=== PATIENT | female | born 1990 | race Caucasian/White ===

== ENCOUNTER 2022-05-21 14:36 | Emergency (ER) | payer OTHER, SELFPAY ==
[2022-05-21 15:19] VITALS: BP 150/82; PULSE 97; RESP 18; TEMP 36.3; O2SAT 98; BMI 22.3
--- NOTE | 2022-05-21 17:03 | CRLHL7_ITS ---
For Patients: As a result of the Century Cures Act, medical imaging exams and procedure reports are released immediately into your electronic medical record. You may view this report before your referring provider. If you have questions, please contact your health care provider. INDICATION: Abdominal pain. TECHNIQUE: CT abdomen and pelvis acquired with intravenous contrast, 64 mL of Isovue 370. Coronal and sagittal reformats. COMPARISON: None available. FINDINGS: The imaged lower chest is unremarkable. Normal liver contour. No suspicious hepatic lesion. The portal and hepatic veins are patent. No biliary dilatation. The gallbladder, pancreas, spleen, and adrenals are unremarkable. Symmetric renal enhancement. No hydronephrosis bilaterally. Unremarkable bladder. Anteverted uterus. The bowel appears normal in caliber and enhancement diffusely. Noninflamed appendix. No free air, free fluid, focal collection, or lymphadenopathy. Normal caliber abdominal aorta. No suspicious osseous lesion. IMPRESSION: No acute findings or CT correlate for abdominal pain identified. Dictated by Vance Mueller MD @ 05/21/2022 6:19:05 PM Please note that all CT scans at this facility use dose modulation, iterative reconstruction, and/or weight-based dosing when appropriate to reduce radiation dose to as low as reasonably achievable. Dictated by: Vance Mueller MD @ 05/21/2022 18:19:11 (Electronically Signed)
--- NOTE | 2022-05-21 17:04 | ED_ITS ---
HPI - Abdominal Pain General Chief Complaint: Abdominal Pain Stated Complaint: Diarrhea 2 days, right side abdominal pain Time Seen by Provider: 05/21/22 16:15 History of Present Illness HPI narrative: This 31-year-old female comes in with right-sided abdominal pain that began a couple days ago. She states that it is a constant pain and seems to be worsening. She has had several bouts of diarrhea daily since then. She does not report any fevers or dysuria. She states that she does not care to eat much. Pain is worse with movement and lessened when remaining still. Related Data Home Medications Medication Instructions Recorded Confirmed albuterol sulfate 90 mcg/actuation inhalation 05/21/22 aerosol inhaler etonogestrel 68 mg subdermal subdermal 05/21/22 implant mometasone 100 mcg/actuation HFA inhalation 05/21/22 aerosol inhaler (Asmanex HFA) Previous Rx's Medication Instructions Recorded hydrocodone 5 mg-acetaminophen 325 1 tab PO Q4-6H PRN pain #14 tabs 05/21/22 mg tablet Allergies Allergy/AdvReac Type Severity Reaction Status Date / Time doxycycline Allergy Verified 05/21/22 15:18 ibuprofen Allergy Verified 05/21/22 15:18 Review of Systems Status of ROS Reports: 10 or more systems reviewed and unremarkable except as noted in History and below Narrative Constitutional: No fevers, no weight gain or loss. Eyes: No discharge. No vision changes. HENT: No congestion, no sore throat, no ear pain. Cardiovascular: No chest pain, no palpitations. Respiratory: No shortness of breath, no wheezes, no cough. Gastrointestinal: Right-sided abdominal pain with diarrhea. Genitourinary: No dysuria, no hematuria. Musculoskeletal: Normal range of motion. Skin: No rashes, no pruritis. Neurological: No dizziness, weakness, sensory change, speech change. Endo/Heme/Allergies: No bruising or bleeding. No polydipsia. Pysch: no suicidality, no anxiety, no insomnia. All other systems reviewed and are negative. PFSH PFSH Social History Smoking Status: Never smoker Do you use any of these nicotine containing products: None Second hand tobacco smoke exposure: No How often do you have a drink containing alcohol: 2-4 times a month How many standard drinks containing alcohol do you have on a typical day: 3 or 4 How often do you have six or more drinks on one occasion: Never AUDIT-C Alcohol total score: 3 Non-prescribed substance use: denies use service: No Exam Narrative: Exam Narrative: Constitutional: Well-developed, well-nourished, no acute distress. HEENT: Normocephalic, atraumatic. Neck: Normal range of motion. Nontender. Supple. Heart: Regular. No murmurs. Normal rate. Intact distal pulses. Lungs: Clear to auscultation. No chest discomfort. No wheezes, rhonchi, or rales . Abdomen: Decreased bowel sounds. Pain is located on the right side of the abdomen. Rovsing sign is negative. She does have tenderness over McBurney's point and there is rebound tenderness. Genitalia: Deferred. Back: No midline tenderness. Normal range of motion. Extremities: Normal range of motion. No injury. Skin: Intact. No rash. Warm. No erythema or pallor. Neurologic: No altered sensation. No weakness. Alert and oriented. Psychiatric: No suicidality. No anxiety or depression. No insomnia. Nursing notes and vitals signs are reviewed. Const: Vital Signs, click to edit/add: Vital Signs - 24 hr 05/21/22 15:19 05/21/22 17:44 Temperature 97.4 F L Pulse Rate [Right Pulse Oximeter] 97 67 Respiratory Rate 18 18 Blood Pressure [Ri ght Upper Arm] 150/82 H 124/87 Pulse Oximetry 98 98 Oxygen Delivery Me thod Room Air Room Air Course Vital Signs Vital signs: Initial Vital Signs Temperature 97.4 F L 05/21/22 15:19 Temperature Source Temporal Artery Scan 05/21/22 15:19 Pulse Rate 97 05/21/22 15:19 Respiratory Rate 18 05/21/22 15:19 Blood Pressure 150/82 H 05/21/22 15:19 Blood Pressure Mean 104 05/21/22 15:19 Blood Pressure Position Sitting 05/21/22 15:19 Pulse Oximetry 98 05/21/22 15:19 Oxygen Delivery Method 05/21/22 15:19 Vital Signs Temperature 97.4 F L 05/21/22 15:19 Pulse Rate 97 05/21/22 15:19 Respiratory Rate 18 05/21/22 15:19 Blood Pressure 150/82 H 05/21/22 15:19 Pulse Oximetry 98 05/21/22 15:19 Oxygen Delivery Method 05/21/22 15:19 Temperature 97.4 F L 05/21/22 15:19 Pulse Rate 67 05/21/22 17:44 Respiratory Rate 18 05/21/22 17:44 Blood Pressure 124/87 05/21/22 17:44 Pulse Oximetry 98 05/21/22 17:44 Oxygen Delivery Method 05/21/22 17:44 MDM - Abdominal Pain MDM Narrative Medical decision making narrative: This patient comes in with diarrhea and right-sided abdominal pain over the past couple days. She did present with some distinct tenderness at McBurney's point. An IV was established and CT imaging of the abdomen and pelvis is acquired. Lab results returned with completely normal findings and her CT imaging shows no findings to explain her pain. She did have a Nexplanon inserted a couple months ago. I stated that she may be having pain from a draining or leaking ovarian cyst that is not visualized on imaging. She does have diarrhea and this may also then be a gastroenteritis. However her abdominal pain is more suspicious of an ovarian cyst. At the time of discharge the patient appears safe for outpatient management. The treatment plan is reviewed along with written and verbal return precautions. Reasons to return and the importance of close followup were also reviewed. She received a prescription for [place]. Lab Data Labs: Lab Results 05/21/22 05/21/22 Range/Units 17:40 17:40 WBC 6.79 (4.50-11.00) K/uL RBC 4.66 (4.00-5.20) m/uL Hgb 14.4 (12.0-16.0) gm/dL Hct 42.5 (33.0-51.0) % MCV 91 (80-100) fL MCH 31 (26-34) pg MCHC 34 (32-36) gm/dL RDW Coeff of Shira 11.5 (11.5-15.5) % Plt Count 315 (140-440) K/uL Neut % (Auto) 63.0 (42.0-72.0) % Lymph % (Auto) 30.2 (20-44) % [place] % (Auto) 5.7 (0.0-11.0) % Eos % (Auto) 0.6 (0.0-7.0) % Baso % (Auto) 0.4 (0.0-3.0) % Neut # (Auto) 4.27 (1.7-7.0) K/uL Lymph # (Auto) 2.05 (0.90-2.90) K/uL [place] # (Auto) 0.40 (0.00-0.90) K/UL Eos # (Auto) 0.04 (0.00-0.50) K/uL Baso # (Auto) 0.03 (0.00-0.30) K/uL Sodium 141 (135-149) mmol/L Potassium 4.1 (3.6-5.1) mmol/L Chloride 106 (96-114) mmol/L Carbon Dioxide 26 (20-32) mmol/L BUN 10 (5-24) mg/dL Creatinine 0.6 (0.5-1.5) mg/dL Estimated Creat Clear 118.39 Estimated GFR 124 ml/min Glucose 84 (60-115) mg/dL Calcium 9.6 (8.4-10.6) mg/dL Imaging Data CT scan - abdomen: Radiologist's impression: FINDINGS: The imaged lower chest is unremarkable. Normal liver contour. No suspicious hepatic lesion. The portal and hepatic veins are patent. No biliary dilatation. The gallbladder, pancreas, spleen, and adrenals are unremarkable. Symmetric renal enhancement. No hydronephrosis bilaterally. Unremarkable bladder. Anteverted uterus. The bowel appears normal in caliber and enhancement diffusely. Noninflamed appendix. No free air, free fluid, focal collection, or lymphadenopathy. Normal caliber abdominal aorta. No suspicious osseous lesion. IMPRESSION: No acute findings or CT correlate for abdominal pain identified. Discharge Plan Discharge Clinical Impression: Abdominal pain Patient Disposition: Home, Self-Care Condition: Stable Additional Instructions: Take medication as needed and indicated. Follow up with MD or return if worsening. Prescriptions: New hydrocodone-acetaminophen 5-325 mg tablet 1 tab PO Q4-6H PRN (Reason: pain) Qty: 14 0RF No Action albuterol sulfate 90 mcg/actuation HFA aerosol inhaler INHALATION Label Comments: INHALE 2 PUFFS BY MOUTH EVERY 4 AT BEDTIME IF NEEDED. 30 MINUTES PRIOR TO EXERTION. Asmanex HFA 100 mcg/actuation HFA aerosol inhaler INHALATION Label Comments: INHALE 1 PUFF BY MOUTH TWICE DAILY etonogestrel 68 mg implant subdermal Follow Up/Referrals: Provider,Not a Local [Primary Care Provider] - Stand Alone Forms: [facility] Info Instructions
[2022-05-21 17:44] VITALS: BP 124/87; PULSE 67; RESP 18; O2SAT 98
[2022-05-21 17:55] LABS: Basophils Absolute Auto 0.03 K/uL (0.00-0.30); Basophils Percent Auto 0.4 % (0.0-3.0); Eosinophils Absolute Auto 0.04 K/uL (0.00-0.50); Eosinophils Percent Auto 0.6 % (0.0-7.0); Hematocrit 42.5 % (33.0-51.0); Hemoglobin* 14.4 gm/dL (12.0-16.0); Immature Granulocytes Abs Auto 0.01 K/uL (0.00-0.30); Immature Granulocytes Pct Auto 0.1 %; Lymphocytes Absolute Auto 2.05 K/uL (0.90-2.90); Lymphocytes Percent Auto 30.2 % (20-44); Mean Corpuscular HGB Conc 34 gm/dL (32-36); Mean Corpuscular Hemoglobin 31 pg (26-34); Mean Corpuscular Volume 91 fL (80-100); Monocytes Percent Auto 5.7 % (0.0-11.0); Neutrophils Absolute Auto 4.27 K/uL (1.7-7.0); Platelet Count* 315 K/uL (140-440); RDW Coefficient of Variation % 11.5 % (11.5-15.5); Red Blood Count 4.66 m/uL (4.00-5.20); White Blood Count* 6.79 K/uL (4.50-11.00)
[2022-05-21 18:00] LABS: Slide Review Reflex No
[2022-05-21 18:13] LABS: Chloride* 106 mmol/L (96-114)
[2022-05-21 18:14] LABS: Potassium* 4.1 mmol/L (3.6-5.1); Sodium* 141 mmol/L (135-149)
[2022-05-21 18:16] LABS: Creatinine* 0.6 mg/dL (0.5-1.5); Est. Creatinine Clearance* 118.39; Estimated Glomerular Filt Rate 124 ml/min
[2022-05-21 18:17] LABS: Blood Urea Nitrogen* 10 mg/dL (5-24); Calcium* 9.6 mg/dL (8.4-10.6); Carbon Dioxide* 26 mmol/L (20-32); Glucose* 84 mg/dL (60-115)
== END 2022-05-21 19:20 | disposition home or self-care (01) ==
PROVIDERS: Emergency Provider Emergency Medicine Emergency Medical Services
DX: R10.9 Unspecified abdominal pain (principal)
CPT/HCPCS: 36415; 74177; 80048; 85025; 99284; 99285; Q9967

== ENCOUNTER 2022-08-13 08:33 | Emergency (ER) | payer OTHER, SELFPAY ==
[2022-08-13 08:40] VITALS: BP 135/87; PULSE 94; RESP 18; TEMP 36.2; O2SAT 97
--- NOTE | 2022-08-13 09:02 | ED_ITS ---
HPI - General Adult General Chief complaint: Skin/Abscess/Foreign Body Stated complaint: stepped on sea creature in [place] on wed Time Seen by Provider: 08/13/22 08:47 History of Present Illness HPI narrative: This 31-year-old female comes in with report of injury to her feet that occurred 5 days ago. She was vacationing in [place] and accidentally stepped on some aquatic being thought to be a see or chin. There were spines on this urchin that stuck into both of her feet. She has been attempting to remove them and has been able to remove some of them. She also has been soaking her feet in vinegar. She is ambulatory but reports pain when walking on her left foot especially. She does not have any other injury. She has not had any fevers. Related Data Home Medications Medication Instructions Recorded Confirmed albuterol sulfate 90 mcg/actuation inhalation 05/21/22 aerosol inhaler etonogestrel 68 mg subdermal subdermal 05/21/22 implant mometasone 100 mcg/actuation HFA inhalation 05/21/22 aerosol inhaler (Asmanex HFA) Previous Rx's Medication Instructions Recorded hydrocodone 5 mg-acetaminophen 325 1 tab PO Q4-6H PRN pain #14 tabs 05/21/22 mg tablet Allergies Allergy/AdvReac Type Severity Reaction Status Date / Time doxycycline Allergy Verified 05/21/22 15:18 ibuprofen Allergy Verified 05/21/22 15:18 Review of Systems Status of ROS: Reports: 10 or more systems reviewed and unremarkable except as noted in History and below Narrative: Constitutional: No fevers, no weight gain or loss. Eyes: No discharge. No vision changes. HENT: No congestion, no sore throat, no ear pain. Cardiovascular: No chest pain, no palpitations. Respiratory: No shortness of breath, no wheezes, no cough. Gastrointestinal: No abdominal pain, no vomiting, no diarrhea. Genitourinary: No dysuria, no hematuria. Musculoskeletal: Normal range of motion. Skin: No rashes, no pruritis. Pain in her left foot as described above. Neurological: No dizziness, weakness, sensory change, speech change. Endo/Heme/Allergies: No bruising or bleeding. No polydipsia. Pysch: no suicidality, no anxiety, no insomnia. All other systems reviewed and are negative. PFSH PFSH Social History Smoking Status: Never smoker Do you use any of these nicotine containing products: None Second hand tobacco smoke exposure: No How often do you have a drink containing alcohol: 2-4 times a month How many standard drinks containing alcohol do you have on a typical day: 3 or 4 How often do you have six or more drinks on one occasion: Never AUDIT-C Alcohol total score: 3 Non-prescribed substance use: denies use service: No Exam Narrative: Exam Narrative: Constitutional: Well-developed, well-nourished, no acute distress. HEENT: Normocephalic, atraumatic. Neck: Normal range of motion. Nontender. Supple. Heart: Intact distal pulses. Lungs: No chest discomfort. No wheezes, rhonchi, or rales. Abdomen: Nontender. Back: Normal range of motion. Extremities: Normal range of motion. No injury. Skin: No rash. Warm. No erythema or pallor. Small healing areas on the bottom of both feet where there were punctures from an urchin. There are a few black spots on the plantar surface of her left foot suspicious for foreign object yet present in her feet. Neurologic: No altered sensation. No weakness. Alert and oriented. Psychiatric: No suicidality. No anxiety or depression. No insomnia. Nursing notes and vitals signs are reviewed. Const: Vital Signs, click to edit/add: Vital Signs - 24 hr 08/13/22 08:40 Temperature 97.2 F L Pulse Rate [Right Pulse Oximeter] 94 Respiratory Rate 18 Blood Pressure [Ri ght Upper Arm] 135/87 Pulse Oximetry 97 Oxygen Delivery Me thod Room Air Course Vital Signs Vital signs: Initial Vital Signs Temperature 97.2 F L 08/13/22 08:40 Temperature Source Temporal Artery Scan 08/13/22 08:40 Pulse Rate 94 08/13/22 08:40 Pulse Rhythm Regular 08/13/22 08:40 Respiratory Rate 18 08/13/22 08:40 Blood Pressure 135/87 08/13/22 08:40 Blood Pressure Mean 103 08/13/22 08:40 Blood Pressure Position Sitting 08/13/22 08:40 Pulse Oximetry 97 08/13/22 08:40 Oxygen Delivery Method Room Air 08/13/22 08:40 Vital Signs Temperature 97.2 F L 08/13/22 08:40 Pulse Rate 94 03/27/23 08:40 Respiratory Rate 18 08/13/22 08:40 Blood Pressure 135/87 08/13/22 08:40 Pulse Oximetry 97 08/13/22 08:40 Oxygen Delivery Method Room Air 08/13/22 08:40 Temperature 97.2 F L 08/13/22 08:40 Pulse Rate 94 08/13/22 08:40 Respiratory Rate 18 08/13/22 08:40 Blood Pressure 135/87 08/13/22 08:40 Pulse Oximetry 97 08/13/22 08:40 Oxygen Delivery Method Room Air 08/13/22 08:40 Medical Decision Making MDM Narrative Medical decision making narrative: This patient comes in with pain in her left foot from an injury from stepping on a sea creature 5 days ago. Under magnification I was able to identify 4 areas where there was a small black dot indicating residual foreign object. With a small pickups I was able to remove all of these. This brought about immediate relief. She was able to walk with minimal discomfort on this foot afterwards. There is no sign of infection. I did provide a return to work slip. Discharge Plan Discharge Clinical Impression: Foreign body (FB) in soft tissue Patient Disposition: Home, Self-Care Condition: Improved Additional Instructions: Increase activity as tolerated. Follow up with MD or return if worsening. Prescriptions: No Action albuterol sulfate 90 mcg/actuation HFA aerosol inhaler INHALATION Patient Comments: INHALE 2 PUFFS BY MOUTH EVERY 4 AT BEDTIME IF NEEDED. 30 MINUTES PRIOR TO EXERTION. Asmanex HFA 100 mcg/actuation HFA aerosol inhaler INHALATION Patient Comments: INHALE 1 PUFF BY MOUTH TWICE DAILY etonogestrel 68 mg implant subdermal hydrocodone-acetaminophen 5-325 mg tablet 1 tab PO Q4-6H PRN (Reason: pain) Qty: 14 0RF Follow Up/Referrals: Provider,Not a Local [Primary Care Provider] - Stand Alone Forms: [employer] Info Instructions
[2022-08-13 09:15] VITALS: BP 135/87; PULSE 94; RESP 18; TEMP 36.2
== END 2022-08-13 09:20 | disposition home or self-care (01) ==
LOC: ED 09:23
PROVIDERS: Emergency Provider Emergency Medicine Emergency Medical Services
DX: S91.342A Puncture wound with foreign body, left foot, initial encounter (principal); W56.89XA Other contact with other nonvenomous marine animals, initial encounter
CPT/HCPCS: 10120; 99283; 99284

== ENCOUNTER 2022-08-14 04:57 | Emergency (ER) | payer OTHER, SELFPAY ==
[2022-08-14 05:03] VITALS: BP 134/95; PULSE 81; RESP 18; TEMP 37.1; O2SAT 99
--- NOTE | 2022-08-14 05:37 | ED.GENADULT ---
HPI - General Adult General Chief complaint: Extremity Pain/Injury, Lower Stated complaint: Pinky toe swollen Time Seen by Provider: 08/14/22 05:13 Source: patient Mode of arrival: ambulatory Limitations: no limitations History of Present Illness HPI narrative: 31-year-old female presents to the emergency department with pain in her left 5th toe. Patient return from [place] where she stepped on a sea urchin 6 days ago. Bystanders helped her dig many of the large spikes out of her foot right after the incident but she continued to notice pain and small spikes remaining. She was evaluated in the emergency department yesterday, notes are reviewed. Several spikes were removed by 1 of my partners. There were no significant signs of infection at that time. Patient has continued to dig a few of the spikes out herself. The 1 underneath her 5th toe is bothersome, feels like she cannot walk on it. There is no fevers, no redness, no purulent drainage. She has not been applying antibiotic ointment. She is not immunosuppressed, no steroid use. Reports an allergy to doxycycline which caused a whole-body rash. Past medical history she states is benign, no major long-term health problems. Travel pertinent to [place] recently. 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 Only long-term medication is Nexplanon. ROS notable for the musculoskeletal and skin symptoms as described above, otherwise denies any other generalized, skin, musculoskeletal lymphatic or hematologic concerns. Related Data Home Medications Medication Instructions Recorded Confirmed albuterol sulfate 90 mcg/actuation inhalation 05/21/22 aerosol inhaler etonogestrel 68 mg subdermal subdermal 05/21/22 implant mometasone 100 mcg/actuation HFA inhalation 05/21/22 aerosol inhaler (Asmanex HFA) Previous Rx's Medication Instructions Recorded hydrocodone 5 mg-acetaminophen 325 1 tab PO Q4-6H PRN pain #14 tabs 05/21/22 mg tablet cephalexin 500 mg capsule 500 mg PO TID #20 caps 08/14/22 Allergies Allergy/AdvReac Type Severity Reaction Status Date / Time doxycycline Allergy Verified 05/21/22 15:18 ibuprofen Allergy Verified 05/21/22 15:18 PFSH PFSH Social History Smoking Status: Never smoker Do you use any of these nicotine containing products: None Second hand tobacco smoke exposure: No How often do you have a drink containing alcohol: 2-4 times a month How many standard drinks containing alcohol do you have on a typical day: 3 or 4 How often do you have six or more drinks on one occasion: Never AUDIT-C Alcohol total score: 3 Non-prescribed substance use: denies use service: No Exam Const: Vital Signs, click to edit/add: Vital Signs - 24 hr 08/14/22 05:03 Temperature 98.7 F Pulse Rate [Pulse Oximeter] 81 Respiratory Rate 18 Blood Pressure [Ri t Upper Arm] 134/95 H Pulse Oximetry 99 Oxygen Delivery Me thod Room Air Documenting provider has reviewed patient's vital signs: yes Common normals: no apparent distress General appearance: cooperative, comfortable and well kempt Eye: Common normals: conjunctivae normal General eye: normal appearance of both eyes Conjunctiva: conjunctiva(e) normal Resp: Common normals: normal respiratory effort Effort & inspection: able to speak in complete sentences Cardio: Common normals: peripheral pulses 2+ throughout Peripheral pulses: pulses 2+ throughout Extremity: Other: Left foot examined, multiple puncture wounds consistent with her chin encounter and foreign body removals. They are still well over a dozen spikes that are very small and do not appear infected. The larger lesions all seem to have been removed. The 1 in question is at the bottom crease of her left 5th toe. There is some mild surrounding redness but no purulent drainage. There is a black speck of foreign body in the center of the inflamed portion. There is mild swelling of the 5th digit. The remainder of the toes look good with no signs of infection or inflammation. The joints and ankle all move normally. Psych: Appearance: well kempt Attitude: engaged Activity/motor behavior: appropriate eye contact Insight: insight good Judgement: judgment good Skin: Narrative: Multiple puncture wounds on foot with signs of infection inflammation under 5th toe Course Vital Signs Vital signs: Initial Vital Signs Temperature 98.7 F 08/14/22 05:03 Temperature Source Temporal Artery Scan 08/14/22 05:03 Pulse Rate 81 08/14/22 05:03 Pulse Rhythm Regular 08/14/22 05:03 Respiratory Rate 18 08/14/22 05:03 Blood Pressure 134/95 H 08/14/22 05:03 Blood Pressure Mean 108 08/14/22 05:03 Blood Pressure Position Sitting 08/14/22 05:03 Pulse Oximetry 99 08/14/22 05:03 Oxygen Delivery Method Room Air 08/14/22 05:03 Vital Signs Temperature 98.7 F 08/14/22 05:03 Pulse Rate 81 08/14/22 05:03 Respiratory Rate 18 08/14/22 05:03 Blood Pressure 134/95 H 08/14/22 05:03 Pulse Oximetry 99 08/14/22 05:03 Oxygen Delivery Method Room Air 08/14/22 05:03 Temperature 98.7 F 08/14/22 05:03 Pulse Rate 81 08/14/22 05:03 Respiratory Rate 18 08/14/22 05:03 Blood Pressure 134/95 H 08/14/22 05:03 Pulse Oximetry 99 08/14/22 05:03 Oxygen Delivery Method Room Air 08/14/22 05:03 Medical Decision Making MDM Narrative Medical decision making narrative: Counseled patient that we should leave the tiny, noninflamed lesions alone. Recommended that we remove the foreign body in the inflamed area. She gives verbal consent. Procedure: Foreign body removal. Cleansed with alcohol wipe and 0.5 mL of 1% lidocaine without epinephrine is used for anesthesia and elevate the foreign body off of the surface. Cleansed again with iodine swab and then with a combination of a 25 gauge needle and a small hemostat, a a 1 mm wide by 4 mm long Urgent spike is removed from the inflamed area under the crease of the 5th toe. A little bit of bleeding was encountered, I applied pressure. It did not completely stop by a further examined and see that the bleeding is only coming from the surface of the skin and apply a little bit of Dermabond just to the bleeding area. Well tolerated. I then counseled the patient regarding my thoughts that there is an early infection. Her pain is out of proportion and the toe does appear swollen. Recommended Keflex 500 mg t.i.d. for 7 days, 1st dose will be given in ED. Continue Tylenol and ibuprofen as needed for pain. At leave it be nonpainful foreign body spots alone. Alarm symptoms reviewed as indications to come back to ED. She verbalizes understanding and agreement Discharge Plan Discharge Clinical Impression: Foreign body (FB) in soft tissue, Cellulitis of foot Patient Disposition: Home, Self-Care Condition: Improved Instructions: Soft Tissue Foreign Body (ED) Additional Instructions: I was able to dig out another medium-sized urchin spike. There are over a dozen very small 1 still left. I would not recommend that you aggressively try to dig these out unless they specifically are painful. I am suspecting that there is some early infection around your smallest toe. This is not uncommon from the inflammation of having the foreign body, multiple open sores and the bacteria that tend to conquer gait in the creases like underneath your toe joint. I have started you on a medicine called Keflex. He will take this 3 times daily for the next 7 days. I would like for you to apply antibiotic ointment diffusely over the open sores on the feet twice daily for the next week as well. It is okay to work and perform all usual activities. It is okay to use Tylenol and/or ibuprofen for pain. If you start running fevers, have significantly increased redness of the foot or notice lots of purulent drainage, please come back to the emergency department. Activity Level: No Restrictions Discharge Diet: Regular Prescriptions: New cephalexin 500 mg capsule 500 mg PO TID Qty: 20 0RF No Action albuterol sulfate 90 mcg/actuation HFA aerosol inhaler INHALATION Patient Comments: INHALE 2 PUFFS BY MOUTH EVERY 4 AT BEDTIME IF NEEDED. 30 MINUTES PRIOR TO EXERTION. Asmanex HFA 100 mcg/actuation HFA aerosol inhaler INHALATION Patient Comments: INHALE 1 PUFF BY MOUTH TWICE DAILY etonogestrel 68 mg implant subdermal hydrocodone-acetaminophen 5-325 mg tablet 1 tab PO Q4-6H PRN (Reason: pain) Qty: 14 0RF Follow Up/Referrals: Provider,Not a Local [Primary Care Provider] - Stand Alone Forms: [employer] Info Instructions
[2022-08-14] MEDS: cephALEXin 500 MG CAPSULE PO (05:41)
== END 2022-08-14 05:55 | disposition home or self-care (01) ==
LOC: ED 05:50
PROVIDERS: Emergency Provider Family Medicine
DX: S91.145A Puncture wound with foreign body of left lesser toe(s) without damage to nail, initial encounter (principal)
CPT/HCPCS: 10120; 99282; 99283; A9270